=== PATIENT | female | born 1950 | race Caucasian/White ===

== ENCOUNTER 2025-04-06 14:32 | Outpatient (CLI) | payer MEDICARE, BC ==
--- NOTE | 2025-04-06 15:53 | RADIOLOGY REPORT ---
EXAM: DI KNEE, COMP 4 VW MIN CLINICAL INDICATION: LEFT FOOT PAIN; RIGHT KNEE PAIN TECHNIQUE: DI KNEE, COMP 4 VW MIN Comparison: None FINDINGS/IMPRESSION: There is no evidence of acute fracture or dislocation. Moderate right knee osteoarthritis. The alignment is anatomical. There is no radiopaque foreign body.
--- NOTE | 2025-04-08 09:42 | RADIOLOGY REPORT ---
EXAM: DI FOOT,LIMITED (AP/LAT) CLINICAL INDICATION: LEFT FOOT PAIN; RIGHT KNEE PAIN TECHNIQUE: DI FOOT,LIMITED (AP/LAT) Comparison: None FINDINGS/IMPRESSION: Nondisplaced fracture of the base of the 5th metatarsal. Chronic fractures involving the base of the 2nd through 4th metatarsals.
== END 2025-04-06 23:59 | disposition home or self-care (01) ==
LOC: RAD 14:32
PROVIDERS: ATTEND Family Medicine
DX: S92.355A Nondisplaced fracture of fifth metatarsal bone, left foot, initial encounter for closed fracture (principal); M17.11 Unilateral primary osteoarthritis, right knee; M25.561 Pain in right knee; M79.672 Pain in left foot; X58.XXXA Exposure to other specified factors, initial encounter; Y93.89 Activity, other specified; Y92.89 Other specified places as the place of occurrence of the external cause; Y99.8 Other external cause status
CPT/HCPCS: 73564; 73620

== ENCOUNTER 2025-05-04 13:35 | Outpatient (CLI) | payer MEDICARE, BC ==
--- NOTE | 2025-05-04 18:25 | RADIOLOGY REPORT ---
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 All CT scans at this facility use dose modulation, iterative reconstruction, and/or weight based dosing when appropriate to reduce radiation dose to as low as reasonably achievable. COMPARISON: None FINDINGS: BONES: Suspected subacute to chronic nondisplaced fracture of the base of the 5th metatarsal no visu alized fracture of the remainder of the metatarsal bases. Midfoot degenerative change with dorsal ost eophytosis. Severe joint space loss. Plantar calcaneal spur. Trace Achilles insertional enthesophy te. Suspected type 3 navicular bone. Mild hallux valgus alignment. Bipartite medial hallux sesamoid. MUSCLES: No abnormal attenuation. JOINT SPACES: No joint effusion. TENDONS/LIGAMENTS: Intact. OTHER: None. IMPRESSION: 1. No CT evidence of an acute aggressive osseous lesion. 2. Suspected subacute to chronic nondisplaced fracture of the base of the 5th metatarsal no visualize d fracture of the remainder of the metatarsal bases. Midfoot degenerative change with dorsal osteophy tosis. Severe joint space loss.
== END 2025-05-04 23:59 | disposition home or self-care (01) ==
LOC: RAD 13:35
PROVIDERS: ATTEND Podiatrist Foot & Ankle Surgery
DX: S92.352G Displaced fracture of fifth metatarsal bone, left foot, subsequent encounter for fracture with delayed healing (principal); D16.22 Benign neoplasm of long bones of left lower limb; M20.42 Other hammer toe(s) (acquired), left foot; R26.2 Difficulty in walking, not elsewhere classified; M20.12 Hallux valgus (acquired), left foot; M19.071 Primary osteoarthritis, right ankle and foot; M25.775 Osteophyte, left foot; X58.XXXD Exposure to other specified factors, subsequent encounter
CPT/HCPCS: 73700